=== PATIENT | male | born 1945 | race Caucasian/White ===

== ENCOUNTER 2018-04-14 08:42 | Day surgery (SDC) | payer MEDICARE ==
[2018-04-13 14:38] LABS: BASOPHILS % (AUTO) 0.5 % (0-1); EOSINOPHILS # (AUTO) 0.1 X10'3 (0-0.9); EOSINOPHILS % (AUTO) 1.7 % (0-6); LYMPHOCYTES # (AUTO) 0.9 X10'3 (1.1-4.8); LYMPHOCYTES % (AUTO) 12.5 % (21-51); MEAN CORPUSCULAR HGB CONC 33.4 % (33.0-36.5); MEAN PLATELET VOLUME 7.3 FL (7.4-10.4); MONOCYTES # (AUTO) 0.7 X10'3 (0-0.9); MONOCYTES % (AUTO) 10.8 % (2-12); NEUTROPHILS # (AUTO) 5.1 X10'3 (1.8-7.7); NEUTROPHILS % (AUTO) 74.5 % (42-75); PRE OP HEMATOCRIT 44.5 % (42.0-52.0); PRE OP HEMOGLOBIN 14.9 g/dL (14.0-17.9); PRE OP PLATELET COUNT 258 X10'3 (140-440); RED BLOOD COUNT 4.37 X10'6 (4.70-6.10); RED CELL DISTRIBUTION WIDTH 11.9 % (11.5-14.5)
[2018-04-13 14:53] LABS: ALBUMIN 3.6 G/DL (3.4-5.0); ALBUMIN/GLOBULIN RATIO 0.9 (1.1-1.5); ALKALINE PHOSPHATASE 117 IU/L (46-116); BLOOD UREA NITROGEN 16 MG/DL (7-18); BUN/CREATININE RATIO 13.2 (5.4-32.0); CALCIUM 9.9 MG/DL (8.5-10.1); CHLORIDE 105 MMOL/L (99-107); CREATININE 1.21 MG/DL (0.60-1.10); PRE OP ALT 58 U/L (30-65); PRE OP ANION GAP 10 (8-16); PRE OP AST 58 U/L (10-37); PRE OP BILIRUB, TOTAL 0.4 MG/DL (0.0-1.0); PRE OP GLUCOSE 141 MG/DL (70-104); PRE OP POTASSIUM 4.7 MMOL/L (3.4-5.1); PRE OP SODIUM 141 MMOL/L (135-145); TOTAL CARBON DIOXIDE 25.6 MMOL/L (24-32); TOTAL PROTEIN 7.6 G/DL (6.4-8.2); eGFR 59 ML/MIN
[~2018-04-14] VITALS: Ht 177.8 cm; Wt 98.9 kg
[2018-04-14] VITALS (8 sets, daily range): BP systolic 128–147; BP diastolic 69–81
[~2018-04-14 08:42] MED LIST: AMLO10TA13 PO; ASPI81TA96 PO; BIOF1TAB7 PO; CHOL10002 PO; CITA-278 PO; DOCUMENT DATE & TIME OF BETA-BLOCKER PO ONE; METO50TA17 PO; MULT-1161 PO; NABU750T2 PO; OMEP-50 PO; ROPIVAcaine 0.5% (5mg/ml) 30ml vial ONE; SIMV20TA5 PO; ceFAZolin 2gm in dextrose, iso 100 ML IV ONE; famotidine 20mg tablet PO ONE; ringers solution, lacted 1,000 ML IV SCH
[2018-04-14] MEDS ORDERED: LIDOcaine 0.5% (5mg/ml) 50ml vial ONE (10:02)
[2018-04-14] MEDS ORDERED: proCHLORperazine 10 MG/2 ml inj IV PRN (10:10)
[2018-04-14] MEDS ORDERED: meperidine/PF 25mg/ml syringe IV PRN ×3 (10:10)
[2018-04-14] MEDS ORDERED: fentaNYL/PF 50MCG/1 ML 2ML syringe IV PRN ×2 (10:10)
[2018-04-14] MEDS ORDERED: ondansetron/PF 4mg/2ml inj IV PRN (10:10)
[2018-04-14] MEDS ORDERED: ringers solution, lacted 1,000 ML IV SCH (10:10)
[2018-04-14] MEDS ORDERED: sevoflurane 250ml liquid IH ONE (11:10)
[2018-04-14] MEDS ORDERED: fentaNYL/PF 50MCG/1 ML 2ML syringe ONE (11:19)
[2018-04-14] MEDS ORDERED: MIDAZolam 5mg/5ml vial ONE (11:22)
[2018-04-14] MEDS ORDERED: propofol inj 20 ML IV ONE (12:04)
== END 2018-04-14 13:29 | disposition home or self-care (01) ==
LOC: PRE-OP 08:42
PROVIDERS: ATTEND Orthopaedic Surgery Hand Surgery
DX: G56.02 Carpal tunnel syndrome, left upper limb (principal); G56.22 Lesion of ulnar nerve, left upper limb; M18.11 Unilateral primary osteoarthritis of first carpometacarpal joint, right hand; I10 Essential (primary) hypertension; K21.9 Gastro-esophageal reflux disease without esophagitis; F32.9 Major depressive disorder, single episode, unspecified; F17.210 Nicotine dependence, cigarettes, uncomplicated; Z72.89 Other problems related to lifestyle; Z79.82 Long term (current) use of aspirin; Z90.89 Acquired absence of other organs; Z88.5 Allergy status to narcotic agent; Z79.891 Long term (current) use of opiate analgesic; Z79.899 Other long term (current) drug therapy; Z98.890 Other specified postprocedural states
CPT/HCPCS: 36415; 64718; 64721; 80053; 85025; A6222; A6449; J0690; J2001; J2250; J2704; J2795; J3010; J7120

== ENCOUNTER 2021-02-15 15:50 | Emergency (ER) | payer MEDICARE ==
[~2021-02-15] VITALS: Ht 177.8 cm; Wt 100.0 kg
[~2021-02-15 15:50] MED LIST changes: -CITA-278 PO; +CITA20TA28 PO; -DOCUMENT DATE & TIME OF BETA-BLOCKER PO ONE; +NABU-141 PO; -NABU750T2 PO; -ROPIVAcaine 0.5% (5mg/ml) 30ml vial ONE; +SIMV-42 PO; -SIMV20TA5 PO; -ceFAZolin 2gm in dextrose, iso 100 ML IV ONE; -famotidine 20mg tablet PO ONE; -ringers solution, lacted 1,000 ML IV SCH
[2021-02-15 16:34] LABS: HEMOGLOBIN 12.7 g/dl (14.0-17.9); MEAN PLATELET VOLUME 8.2 FL (7.4-10.4)
[2021-02-15 16:36] LABS: BASOPHILS # (AUTO) 0.1 X10'3 (0-0.2); BASOPHILS % (AUTO) 1.1 % (0-1); EOSINOPHILS # (AUTO) 0.1 X10'3 (0-0.9); EOSINOPHILS % (AUTO) 2.7 % (0-6); HEMATOCRIT 38.1 % (42.0-52.0); LYMPHOCYTES # (AUTO) 0.8 X10'3 (1.1-4.8); MEAN CORPUSCULAR HEMOGLOBIN 34.1 PG (27.0-31.0); MEAN CORPUSCULAR HGB CONC 33.4 g/dL (33.0-36.5); MEAN CORPUSCULAR VOLUME 102.4 FL (78-98); MONOCYTES # (AUTO) 0.7 X10'3 (0-0.9); MONOCYTES % (AUTO) 14.5 % (2-12); NEUTROPHILS # (AUTO) 3.2 X10'3 (1.8-7.7); NEUTROPHILS % (AUTO) 65.7 % (42-75); PLATELET COUNT 272 X10'3 (140-440); RED BLOOD COUNT 3.72 X10'6 (4.70-6.10); RED CELL DISTRIBUTION WIDTH 13.7 % (11.5-14.5); WHITE BLOOD COUNT 4.9 X10'3 (4.5-11.0)
[2021-02-15 16:37] LABS: ALANINE AMINOTRANSFERASE 27 U/L (12-78); ALBUMIN 3.4 G/DL (3.4-5.0); ALBUMIN/GLOBULIN RATIO 0.9 (1.1-1.5); ALKALINE PHOSPHATASE 99 IU/L (46-116); ANION GAP 11 (8-16); ASPARTATE AMINO TRANSFERASE 24 U/L (10-37); BILIRUBIN,TOTAL 0.8 MG/DL (0.1-1.0); BLOOD UREA NITROGEN 19 MG/DL (7-18); BUN/CREATININE RATIO 16.4 (5.4-32.0); CALCIUM 9.3 MG/DL (8.5-10.1); CHLORIDE 97 MMOL/L (99-107); CREATININE 1.16 MG/DL (0.60-1.10); GLUCOSE 110 MG/DL (70-104); POTASSIUM 4.2 MMOL/L (3.5-5.1); SODIUM 132 MMOL/L (135-145); TOTAL CARBON DIOXIDE 23.7 MMOL/L (24-32); eGFR 62 ML/MIN
[2021-02-15] MEDS ORDERED: furosemide 10 MG/1 ML 10ml inj IV ONE (16:45)
[2021-02-15] MEDS ORDERED: ipratropium/albuterol 3ml nebule NEB ONE (17:25)
[2021-02-15] MEDS ORDERED: FURO-150 PO (18:22)
[2021-02-15 18:55] VITALS: BP 119/79
== END 2021-02-15 18:58 | disposition home or self-care (01) ==
LOC: ER 15:51
DX: R06.02 Shortness of breath (principal); R05 Cough; I50.9 Heart failure, unspecified; I11.0 Hypertensive heart disease with heart failure; F17.200 Nicotine dependence, unspecified, uncomplicated; Z88.5 Allergy status to narcotic agent; Z79.82 Long term (current) use of aspirin; Z79.899 Other long term (current) drug therapy
CPT/HCPCS: 36415; 71045; 71046; 80053; 83880; 84484; 85025; 93005; 94640; 96374; 99285; J1940; 94760

== ENCOUNTER 2021-06-24 13:46 | Outpatient (CLI) | payer MEDICARE ==
[2021-06-24 14:59] LABS: BASOPHILS % (AUTO) 0.7 % (0-1); EOSINOPHILS # (AUTO) 0.1 X10'3 (0-0.9); EOSINOPHILS % (AUTO) 1.6 % (0-6); HEMATOCRIT 37.4 % (42.0-52.0); HEMOGLOBIN 12.9 g/dl (14.0-17.9); LYMPHOCYTES # (AUTO) 0.9 X10'3 (1.1-4.8); LYMPHOCYTES % (AUTO) 11.9 % (21-51); MEAN CORPUSCULAR HEMOGLOBIN 32.6 PG (27.0-31.0); MEAN CORPUSCULAR HGB CONC 34.4 g/dL (33.0-36.5); MEAN CORPUSCULAR VOLUME 94.9 FL (78-98); MEAN PLATELET VOLUME 7.7 FL (7.4-10.4); MONOCYTES # (AUTO) 0.7 X10'3 (0-0.9); MONOCYTES % (AUTO) 10.3 % (2-12); NEUTROPHILS # (AUTO) 5.4 X10'3 (1.8-7.7); NEUTROPHILS % (AUTO) 75.5 % (42-75); PLATELET COUNT 285 X10'3 (140-440); RED BLOOD COUNT 3.94 X10'6 (4.70-6.10); RED CELL DISTRIBUTION WIDTH 14.8 % (11.5-14.5); WHITE BLOOD COUNT 7.2 X10'3 (4.5-11.0)
[2021-06-24 15:03] LABS: ALBUMIN 3.4 G/DL (3.4-5.0); ANION GAP 7 (8-16); BLOOD UREA NITROGEN 20 MG/DL (7-18); CALCIUM 9.2 MG/DL (8.5-10.1); CHLORIDE 103 MMOL/L (99-107); CREATININE 1.33 MG/DL (0.60-1.10); GLUCOSE 91 MG/DL (70-104); POTASSIUM 4.5 MMOL/L (3.5-5.1); SODIUM 138 MMOL/L (135-145); TOTAL CARBON DIOXIDE 27.6 MMOL/L (24-32); eGFR 53 ML/MIN
[2021-06-24 15:06] LABS: PARTIAL THROMBOPLASTIN TIME 30 SECONDS (22-32)
[2021-06-29] MEDS ORDERED: CHOL50004 PO (16:12)
[2021-06-29] MEDS ORDERED: POTA10TA19 PO (16:14)
[2021-06-29] MEDS ORDERED: CLOP75TA15 PO (16:14)
[2021-06-29] MEDS ORDERED: FURO-150 PO (16:14)
[2021-06-29] MEDS ORDERED: LOSA25TA96 PO (16:14)
[2021-06-29] MEDS ORDERED: OMEG1CAP46 PO (16:14)
== END 2021-06-24 23:59 | disposition home or self-care (01) ==
LOC: LAB 13:46
PROVIDERS: ATTEND Internal Medicine Interventional Cardiology
DX: Z01.810 Encounter for preprocedural cardiovascular examination (principal); I65.23 Occlusion and stenosis of bilateral carotid arteries; I70.298 Other atherosclerosis of native arteries of extremities, other extremity; F17.211 Nicotine dependence, cigarettes, in remission; R94.31 Abnormal electrocardiogram [ECG] [EKG]; R00.1 Bradycardia, unspecified; E78.5 Hyperlipidemia, unspecified; R55 Syncope and collapse; I11.0 Hypertensive heart disease with heart failure; I50.9 Heart failure, unspecified
CPT/HCPCS: 36415; 80048; 85025; 85610; 85730

== ENCOUNTER 2021-12-01 10:56 | Day surgery (SDC) | payer MEDICARE ==
[2021-11-26 12:40] LABS: BASOPHILS # (AUTO) 0.1 X10'3 (0-0.2); BASOPHILS % (AUTO) 0.8 % (0-1); EOSINOPHILS # (AUTO) 0.1 X10'3 (0-0.9); EOSINOPHILS % (AUTO) 1.2 % (0-6); HEMATOCRIT 30.9 % (42.0-52.0); HEMOGLOBIN 10.2 g/dl (14.0-17.9); LYMPHOCYTES # (AUTO) 0.7 X10'3 (1.1-4.8); LYMPHOCYTES % (AUTO) 7.3 % (21-51); MEAN CORPUSCULAR HGB CONC 33.1 g/dL (33.0-36.5); MEAN CORPUSCULAR VOLUME 87.5 FL (78-98); MEAN PLATELET VOLUME 7.1 FL (7.4-10.4); MONOCYTES # (AUTO) 0.9 X10'3 (0-0.9); MONOCYTES % (AUTO) 9.2 % (2-12); NEUTROPHILS # (AUTO) 7.5 X10'3 (1.8-7.7); NEUTROPHILS % (AUTO) 81.5 % (42-75); PLATELET COUNT 344 X10'3 (140-440); RED BLOOD COUNT 3.53 X10'6 (4.70-6.10); RED CELL DISTRIBUTION WIDTH 17.6 % (11.5-14.5); WHITE BLOOD COUNT 9.2 X10'3 (4.5-11.0)
[2021-11-26 12:50] LABS: APTT 36 SECONDS (22-32)
[2021-11-26 13:04] LABS: ALBUMIN 3.4 G/DL (3.4-5.0); ANION GAP 10 (8-16); BLOOD UREA NITROGEN 33 MG/DL (7-18); BUN/CREATININE RATIO 21.4 (5.4-32.0); CALCIUM 9.7 MG/DL (8.5-10.1); CHLORIDE 99 MMOL/L (99-107); CREATININE 1.54 MG/DL (0.60-1.10); GLUCOSE 143 MG/DL (70-104); POTASSIUM 4.1 MMOL/L (3.5-5.1); SODIUM 138 MMOL/L (135-145); TOTAL CARBON DIOXIDE 29.4 MMOL/L (24-32); eGFR 44 ML/MIN
[2021-12-01] VITALS (14 sets, daily range): BP systolic 86–103; BP diastolic 46–64
[~2021-12-01] VITALS: Ht 177.8 cm; Wt 93.4 kg
[~2021-12-01 10:56] MED LIST changes: -BIOF1TAB7 PO; -CHOL10002 PO; +CHOL50004 PO; +CLOP75TA15 PO; +FURO-150 PO; +LOSA25TA96 PO; +OMEG1CAP46 PO; +POTA-192 PO
[2021-12-01] MEDS ORDERED: LORazepam 0.5 MG tablet PO PRN (11:20)
[2021-12-01] MEDS ORDERED: normal saline 1,000 ML IV SCH (11:20)
[2021-12-01] MEDS ORDERED: diphenhydrAMINE 25mg capsule PO PRN (11:20)
[2021-12-01] MEDS ORDERED: METO5TAB7 PO (11:27)
[2021-12-01] MEDS ORDERED: RIVA20TA PO (11:27)
[2021-12-01] MEDS ORDERED: FURO20TA4 PO (11:27)
[2021-12-01] MEDS ORDERED: AMLO5TAB16 PO (11:27)
[2021-12-01] MEDS ORDERED: METO-395 PO (11:27)
[2021-12-01] MEDS ORDERED: ATOR40TA72 PO (11:27)
[2021-12-01] MEDS ORDERED: verapamil 2.5 mg/ml inj IV ONE (12:14)
[2021-12-01] MEDS ORDERED: nitroGLYCERIN-Tridil 50MG/D5W 250 ML IV ONE (12:14)
[2021-12-01] MEDS ORDERED: LIDOcaine 1% (10mg/ml)w/preservative injection 20ml MDV ONE (12:15)
[2021-12-01] MEDS ORDERED: heparin 1,000unit/ml 10ml vial 10 ML ONE (12:15)
[2021-12-01] MEDS ORDERED: iohexol 350MG/ML 100ml bottle IV ONE (12:15)
[2021-12-01] MEDS ORDERED: fentaNYL/PF 50MCG/1 ML 2ML syringe ONE (12:15)
[2021-12-01] MEDS ORDERED: midazolam 1 mg/ML 2ml injection ONE (12:15)
[2021-12-01] MEDS ORDERED: LIDOcaine/PRILOcaine 5gm cream TP ONE (12:25)
--- NOTE | 2021-12-01 12:35 | NUR ---
Pt to cardiac construction craft laborer. Repost to Jorge FREEDMAN notified of pt low BP.
--- NOTE | 2021-12-01 14:05 | NUR ---
Pt return from cardiac radiographer cardiac catheterization. Vasc band in place to right wrist, site stable no bleeding or bruising noted. Educated pt to not use right hand/wrist. VSS, BP remains low but stable for pt.
--- NOTE | 2021-12-01 14:10 | NUR ---
at bedside, pt sitting up in bed sipping on soda with out problems, right wrist radial cath site remains stable.
[2021-12-01] MEDS ORDERED: proCHLORperazine 10 MG/2 ml inj IV PRN (14:25)
[2021-12-01] MEDS ORDERED: ondansetron/PF 4mg/2ml inj IV PRN (14:25)
[2021-12-01] MEDS ORDERED: OXAZEpam 15mg capsule PO PRN (14:25)
--- NOTE | 2021-12-01 14:30 | NUR ---
Loree Saldana RN at bedside talking with pt and about TAVR program, setting up appointments for further testing and eval with Dr. Talavera. Right radial site stable.
--- NOTE | 2021-12-01 17:00 | NUR ---
Vasc Band removed, site stable no bleeding or bruising noted. Cleaned site with maxi swab, dressed with 2x2 and op site, pressure dressing applied over op site with multiple 2x2 and coban applied. at bedside. DC instructions given written and verbal, both and pt verbalize understanding. Pt up and amb in hallway gait steady but pt needs to stop multiple times to catch his breath. states he does this often at home too. PIV DC cath intact, VSS denies pain and nausea. assisted pt to get dressed.
--- NOTE | 2021-12-01 17:25 | NUR ---
DC to home with . transferred to private car via . Pt able to transfer self from WC to car, steady on feet.
== END 2021-12-01 17:25 | disposition home or self-care (01) ==
LOC: SSTAY O 10:56
PROVIDERS: ATTEND Internal Medicine Interventional Cardiology
DX: R06.02 Shortness of breath (principal); I35.0 Nonrheumatic aortic (valve) stenosis; I25.10 Atherosclerotic heart disease of native coronary artery without angina pectoris; I11.0 Hypertensive heart disease with heart failure; I50.9 Heart failure, unspecified; I65.29 Occlusion and stenosis of unspecified carotid artery; E78.5 Hyperlipidemia, unspecified; Z88.5 Allergy status to narcotic agent; Z79.899 Other long term (current) drug therapy; Z79.82 Long term (current) use of aspirin; Z87.891 Personal history of nicotine dependence
CPT/HCPCS: 36415; 80048; 85025; 85610; 85730; 93005; 93454; 99152; C1769; C1894; J1644; J2250; J3010; J3490; J7030; Q0163; Q9967; 99153; A4620; A5120

== ENCOUNTER 2021-12-09 11:50 | Outpatient (CLI) | payer MEDICARE ==
[~2021-12-09 11:50] MED LIST changes: -AMLO10TA13 PO; +AMLO5TAB16 PO; +ATOR40TA72 PO; -FURO-150 PO; +FURO20TA4 PO; +IODIXANOL 320 MG/ML INFUS..BTL 100ML IV ONE; +IODIXANOL 320 MG/ML INFUS..BTL 50ML IV ONE; +METO-395 PO; -METO50TA17 PO; +METO5TAB7 PO; -OMEP-50 PO; +OMEP20CA16 PO; +RIVA20TA PO; -SIMV-42 PO
[2021-12-09 12:30] LABS: BASOPHILS % (AUTO) 0.6 % (0-1); EOSINOPHILS % (AUTO) 0.7 % (0-6); HEMATOCRIT 26.5 % (42.0-52.0); HEMOGLOBIN 8.6 g/dl (14.0-17.9); LYMPHOCYTES # (AUTO) 0.5 X10'3 (1.1-4.8); LYMPHOCYTES % (AUTO) 6.4 % (21-51); MEAN CORPUSCULAR HEMOGLOBIN 28.1 PG (27.0-31.0); MEAN CORPUSCULAR HGB CONC 32.5 g/dL (33.0-36.5); MEAN CORPUSCULAR VOLUME 86.6 FL (78-98); MEAN PLATELET VOLUME 6.9 FL (7.4-10.4); MONOCYTES # (AUTO) 0.8 X10'3 (0-0.9); NEUTROPHILS # (AUTO) 6.1 X10'3 (1.8-7.7); NEUTROPHILS % (AUTO) 81.3 % (42-75); PLATELET COUNT 348 X10'3 (140-440); RED BLOOD COUNT 3.06 X10'6 (4.70-6.10); RED CELL DISTRIBUTION WIDTH 17.7 % (11.5-14.5); WHITE BLOOD COUNT 7.5 X10'3 (4.5-11.0)
[2021-12-09 12:41] LABS: APTT 37 SECONDS (22-32)
[2021-12-09 13:07] LABS: ALANINE AMINOTRANSFERASE 17 U/L (12-78); ALBUMIN 3.3 G/DL (3.4-5.0); ALBUMIN/GLOBULIN RATIO 0.9 (1.1-1.5); ALKALINE PHOSPHATASE 112 IU/L (46-116); ANION GAP 11 (8-16); ASPARTATE AMINO TRANSFERASE 13 U/L (10-37); BILIRUBIN,TOTAL 0.6 MG/DL (0.1-1.0); BLOOD UREA NITROGEN 28 MG/DL (7-18); BUN/CREATININE RATIO 20.1 (5.4-32.0); CALCIUM 8.7 MG/DL (8.5-10.1); CHLORIDE 99 MMOL/L (99-107); CREATININE 1.39 MG/DL (0.60-1.10); GLUCOSE 98 MG/DL (70-104); POTASSIUM 3.9 MMOL/L (3.5-5.1); SODIUM 136 MMOL/L (135-145); TOTAL CARBON DIOXIDE 26.3 MMOL/L (24-32); TOTAL PROTEIN 7.1 G/DL (6.4-8.2); eGFR 50 ML/MIN
== END 2021-12-09 23:59 | disposition home or self-care (01) ==
LOC: RAD 11:50
PROVIDERS: ATTEND Internal Medicine Cardiovascular Disease
DX: J98.11 Atelectasis (principal); J90 Pleural effusion, not elsewhere classified; I51.7 Cardiomegaly; I70.0 Atherosclerosis of aorta; I25.10 Atherosclerotic heart disease of native coronary artery without angina pectoris; K55.1 Chronic vascular disorders of intestine; R94.2 Abnormal results of pulmonary function studies; J98.4 Other disorders of lung; I35.0 Nonrheumatic aortic (valve) stenosis; I65.29 Occlusion and stenosis of unspecified carotid artery
CPT/HCPCS: 36415; 71046; 71275; 74174; 80053; 85025; 85610; 85730; 94010; 94727; 94729; Q9967

== ENCOUNTER 2021-12-28 15:01 | Outpatient (CLI) | payer MEDICARE ==
[~2021-12-28 15:01] MED LIST changes: -IODIXANOL 320 MG/ML INFUS..BTL 100ML IV ONE; -IODIXANOL 320 MG/ML INFUS..BTL 50ML IV ONE
[2021-12-28 15:58] LABS: BASOPHILS % (AUTO) 0.9 % (0-1); EOSINOPHILS % (AUTO) 0.8 % (0-6); HEMATOCRIT 26.3 % (42.0-52.0); HEMOGLOBIN 8.5 g/dl (14.0-17.9); LYMPHOCYTES # (AUTO) 0.5 X10'3 (1.1-4.8); LYMPHOCYTES % (AUTO) 10.2 % (21-51); MEAN CORPUSCULAR HEMOGLOBIN 27.3 PG (27.0-31.0); MEAN CORPUSCULAR HGB CONC 32.4 g/dL (33.0-36.5); MEAN CORPUSCULAR VOLUME 84.1 FL (78-98); MEAN PLATELET VOLUME 7.6 FL (7.4-10.4); MONOCYTES # (AUTO) 0.7 X10'3 (0-0.9); MONOCYTES % (AUTO) 13.2 % (2-12); NEUTROPHILS # (AUTO) 3.7 X10'3 (1.8-7.7); NEUTROPHILS % (AUTO) 74.9 % (42-75); PLATELET COUNT 311 X10'3 (140-440); RED BLOOD COUNT 3.13 X10'6 (4.70-6.10); RED CELL DISTRIBUTION WIDTH 17.7 % (11.5-14.5)
[2021-12-28 16:11] LABS: APTT 46 SECONDS (22-32)
[2021-12-28 16:26] LABS: ALANINE AMINOTRANSFERASE 19 U/L (12-78); ALBUMIN 3.1 G/DL (3.4-5.0); ALBUMIN/GLOBULIN RATIO 0.9 (1.1-1.5); ALKALINE PHOSPHATASE 127 IU/L (46-116); ANION GAP 11 (8-16); ASPARTATE AMINO TRANSFERASE 16 U/L (10-37); BILIRUBIN,TOTAL 0.5 MG/DL (0.1-1.0); BLOOD UREA NITROGEN 25 MG/DL (7-18); BUN/CREATININE RATIO 18.1 (5.4-32.0); CHLORIDE 96 MMOL/L (99-107); CREATININE 1.38 MG/DL (0.60-1.10); GLUCOSE 114 MG/DL (70-104); POTASSIUM 3.5 MMOL/L (3.5-5.1); SODIUM 134 MMOL/L (135-145); TOTAL CARBON DIOXIDE 26.8 MMOL/L (24-32); TOTAL PROTEIN 6.6 G/DL (6.4-8.2); eGFR 50 ML/MIN
== END 2021-12-28 23:59 | disposition home or self-care (01) ==
LOC: LAB 15:01
PROVIDERS: ATTEND Internal Medicine Cardiovascular Disease
DX: I35.0 Nonrheumatic aortic (valve) stenosis (principal); R06.02 Shortness of breath; I65.29 Occlusion and stenosis of unspecified carotid artery
CPT/HCPCS: 36415; 80053; 85025; 85610; 85730